=== PATIENT | male | born 1995 | race Caucasian/White ===

== ENCOUNTER 2016-12-01 15:24 | Emergency (ER) | payer BC ==
[~2016-12-01] VITALS: Ht 188 cm; Wt 114.8 kg
[2016-12-01 22:14] VITALS: BP 127/76
== END 2016-12-01 22:15 | disposition home or self-care (01) ==
LOC: EME 15:24
DX: T67.5XXA Heat exhaustion, unspecified, initial encounter (principal); X30.XXXA Exposure to excessive natural heat, initial encounter; Y92.009 Unspecified place in unspecified non-institutional (private) residence as the place of occurrence of the external cause; F17.200 Nicotine dependence, unspecified, uncomplicated
CPT/HCPCS: 99281; 99283